=== PATIENT | male | born 1955 | race Caucasian/White ===

== ENCOUNTER 2017-04-05 13:17 | Emergency (ER) | payer OTHER ==
[~2017-04-05] VITALS: Ht 182.9 cm; Wt 109.1 kg
[2017-04-05 13:25] VITALS: BP 145/92; PULSE 73; RESP 15; O2SAT 97
[2017-04-05 14:06] LABS: APPEARANCE,URINE HAZY (CLEAR,HAZY); COLOR,URINE STRAW (YELLOW); OCCULT BLOOD,URINE SMALL (NEGATIVE); PH,URINE 5.5 (5.0-8.0); UROBILINOGEN,URINE NORMAL (NORMAL)
--- NOTE | 2017-04-05 15:34 | ED.REPORT ---
HPI-Abd Pain M 40 and Over Date of Service April 05, 2017 ED Provider: Lawrence Velazquez MD The patient is a 61 year old male with history of kidney stones and hypertension , who presents to the emergency department complaining of left flank pain that began about 4 hours ago. He has also noticed dark urine, abdominal pain, chills , and nausea. His last kidney stone was about 15 years ago. His current symptoms feel similar to when he previously had stone. He denies testicular pain , vomiting or fever. Nursing Notes Stated Complaint: KIDNEY PAIN Chief Complaint: Male Abdominal Pain Nursing Notes Reviewed: Yes Allergies: Coded Allergies: No Known Allergies (Unverified , 04/05/17) General Time Seen by MD: 15:33 Chief Complaint Flank pain left Hx Obtained From: Patient Sudden in Onset?: Yes Onset Occurred: 1 - 4 hours ago Symptom Duration: Since onset Progression since Onset: Constant Location: : Flank left Quality: Painful Radiation: : LLQ Severity: Current: Moderate Severity: Maximum: Severe Recent Healthcare: No recent doctor visit, No recent hospitalization Similar Sx Previous: Yes Past Medical History Past Medical History Hx of kidney stones Hypertension Family History Noncontributory Social History Other Social History: Good social support, Local resident Ambulatory Status Independent Review of Systems Review of Systems Note: +dark colored urine Constitutional: Reports: Chills, Denies: Fever GI: Reports: Abdominal pain, Nausea, Denies: Vomiting Male: Reports Flank pain, Denies Testicular pain Musculoskeletal: Reports: Back pain Complete sys rev & neg: except as marked. Physical Exam Initial Vital Signs Vital Signs (First) Date Time Temp Pulse Resp B/P Pulse Ox O2 Delivery O2 Flow Rate FiO2 04/05/17 13:25 36.1 73 15 145/92 97 Room Air Initial VS: Reviewed Head / Eyes: Atraumatic, Normocephalic, PERRL ENT: Mucous membranes moist, Conjunctiva normal, No scleral icterus Neck: Supple, Non-tender, Full range of motion Lymphatic: No lymphadenopathy Extremities: Vascular intact, Neuro intact, No swelling, No tenderness Skin: Warm, Dry, No cyanosis Neurologic: Alert, Oriented, Nonfocal Psychiatric: Mood/affect normal, Behavior normal, Normal thought content General/Constitutional: Awake, Alert Respiratory / Chest: Atraumatic, Breath sounds NL, Breath sounds = bilat, No respiratory distress, No rales, No rhonchi, No wheezing Cardiovascular: Heart rate NL, Regular rhythm, Heart sounds NL, No gallop, No murmurs, No rubs, Peripheral circulation NL Abdomen: Atraumatic, Soft, Non-tender, No guarding, No rebound, BS normoactive , No distention, No hernia, No palpable mass, No pulsatile mass Back: Inspection NL, Full range of motion, No midline vertebral tend, No CVA tenderness Interpretation & Diagnostics CT KUB IMPRESSION: 1. Obstructing left proximal/mid ureteral calcification (7mm) as above. 2. Multiple bilateral nonobstructing renal calculi. 3. Calcification is present at the right ureterovesicular junction without obstruction, possibly representing recently passed stone. 4. Mildly enlarged prostate gland. Recommend correlation PSA levels. Dictated by: Tamara Gabriel M.D. on 04/05/2017 at 16:12 Lab Results Interpretation Result Diagram: 04/05/17 1520 04/05/17 1520 Test 04/05/17 13:53 04/05/17 15:20 Urine Color Straw (YELLOW) Urine Appearance Hazy (CLEAR,HAZY) Urine pH 5.5 (5.0-8.0) Urine Specific [place] 1.020 (1.003-1.035) Urine Protein Negativemg/dL (NEG,TRACE) Urine Glucose (UA) Negativemg/dL (NEGATIVE) Urine Ketones Negativemg/dL (NEGATIVE) Urine Occult Blood Small (NEGATIVE) Urine Nitrite Negative (NEGATIVE) Urine Bilirubin Negative (NEGATIVE) Urine Urobilinogen Normalmg/dL (NORMAL) Urine Leukocyte Esterase Negative (NEGATIVE) Urine RBC 11-50/hpf (0-2) Urine WBC 0-5/hpf (0-5) Urine Epithelial Cells Occasional/hpf (NONE-MOD) Urine Crystals None seen (NONE SEEN) Urine Bacteria None/hpf (NONE-FEW) Urine Hyaline Casts None/lpf (NONE) Urine Granular Casts None seen (NONE SEEN) Urine Waxy Casts None seen (NONE SEEN) Urine Red Blood Cell Casts None seen (NONE SEEN) Urine White Blood Cell Casts None seen (NONE SEEN) Urine Mucus Present (None Seen) Urine Trichomonas None seen (NONE SEEN) Urine Yeast None (NONE SEEN) Urinalysis Comment None Urine Culture Reflexed Not indicated White Blood Count 9.5th/mm3 (3.8-10.1) Red Blood Count 4.81mil/mm3 (4.40-5.80) Hemoglobin 15.4g/dL (13.8-17.2) Hematocrit 43.3% (41.0-50.0) Mean Corpuscular Volume 90.0fL (81-100) Mean Corpuscular Hemoglobin 32.0pg (27.0-35.0) Mean Corpuscular Hemoglobin Concent 35.6% (32.0-37.0) Red Cell Distribution Width 12.6% (12.3-15.4) Platelet Count 166bil/L (150-400) Neutrophils (%) (Auto) 78.6% (40-74) Lymphocytes (%) (Auto) 12.8% (14-46) Monocytes (%) (Auto) 7.3% (4-12) Eosinophils (%) (Auto) 0.7% (0-5) Basophils (%) (Auto) 0.4% (0-3) Hold Purple Top Tube Received (Received) Hold Blue Top Tube Received (Received) Sodium Level 136mEq/L (134-144) Potassium Level 4.2mEq/L (3.5-5.2) Chloride Level 100mEq/L (97-108) Carbon Dioxide Level 21mmol/L (18-29) Blood Urea Nitrogen 16mg/dL (8-27) Creatinine 0.84mg/dL (0.76-1.27) Estimat Glomerular Filtration Rate 99mL/min (>59) Glucose Level 133mg/dL (60-99) Calcium Level 9.4mg/dL (8.5-10.1) Total Bilirubin 0.5mg/dL (0.0-1.2) Aspartate Amino Transf (AST/SGOT) 45U/L (0-50) Alanine Aminotransferase (ALT/SGPT) 63U/L (0-44) Alkaline Phosphatase 90U/L (25-160) Total Protein 7.0g/dL (6.4-8.4) Albumin 4.1g/dL (3.4-5.0) Hold Chilo Top Tube Received (Received) Hold Hardy Top Tube Received (Received) Re-Eval/Medical Decision Source of Hx: Old records Time of Eval: 16:33 Re-Evaluation/Progress Note: Rechecked the patient. Discussed CT results and plan for urology consult. Time of Eval: 17:12 Re-Evaluation/Progress Note: Rechecked the patient. Discussed plan for discharge with outpatient followup. All questions were addressed. Consultation : Referral / Consult Name: Tracy Ivy MD Consulted With: Urology Call Returned at: 16:56 Poultry Pathologist: Will see in office, Agrees with eval, Agrees with plan Counseled Regarding: Diagnosis, Lab results, Need for follow-up, When/why to return to ED Discharge & Departure Primary Impression: Ureteral obstruction, left Additional Impression: Ureterolithiasis Disposition: Home Vital Signs - All Vital Signs Date Time Temp Pulse Resp B/P Pulse Ox O2 Delivery O2 Flow Rate FiO2 04/05/17 13:25 36.1 73 15 145/92 97 Room Air )( All Prior VS Reviewed: Yes Condition: Stable Patient Instructions: Renal Colic (ED) Additional Instructions: Thank you for entrusting us with your care today. Your CT scan does show evidence of an obstructing stone on the left side. It is important that you followup with a urologist in the next few days. We have given you a referral to Dr. Ivy. Call the office tomorrow to schedule an appointment. Ibuprofen 100 mg every 8 hours. Use the hydrocodone/APAP 5/325 one or 2 pills every 4 hours as needed for pain and ondansetron as needed for nausea. Seek care sooner for increased pain, inability to urinate, fever, chills, vomiting, or any other new or concerning symptoms. Referrals: Leonardo Fuentes DO (PCP) Tracy Ivy MD Attestation Portions of this note were transcribed by Marquita Hearn. I, Dr. Velazquez personally performed the history, physical exam and medical decision-making; I reviewed and confirmed the accuracy of the information in the transcribed note. Signed by: Parish Aguilar, 04/05/2017 at 1720. copies to: Tracy Ivy MD; Leonardo Fuentes Kirk H MD April 05, 2017 15:34 Marquita Hearn April 05, 2017 15:37
[2017-04-05] MEDS ORDERED: 0.9% Sodium Chloride 1,000 ML IV ONE (15:44)
[2017-04-05] MEDS ORDERED: Ondansetron 2 mg/mL 2 mL Inj IVPUSH PRN (15:45)
[2017-04-05 15:58] LABS: BASOPHILS % (AUTO) 0.4 % (0-3); EOSINOPHILS % (AUTO) 0.7 % (0-5); MONOCYTES % (AUTO) 7.3 % (4-12); NEUTROPHILS % (AUTO) 78.6 % (40-74); Platelet Count 166 bil/L (150-400)
--- NOTE | 2017-04-05 16:21 | DRSVH ---
PROCEDURE: CT KUB ([id number]) INDICATIONS: left flank pain/hematuria TECHNIQUE: Noncontrast 5 mm thick sections acquired from the diaphragms to the symphysis. 5 mm thick coronal an d sagittal reformats were then performed. For radiation dose reduction, the following was used: aut omated exposure control, adjustment of mA and/or kV according to patient size. COMPARISON: None. FINDINGS: Image quality: Excellent. Lung bases: Lung bases are clear. Heart size is normal. Urinary system: Both kidneys are normal in size. Bilateral renal cysts are present, the largest on the left measuring 44 mm and the largest on the right measuring 36 mm. Multiple calcifications are pr esent within the left kidney, the largest measuring approximately 10 mm in the superior pole, Hounsfi eld units measuring 799. There are 3 additional calcifications in the posterior aspect of the superio r pole, the largest measuring approximately 2 mm. There are 2 punctate nonobstructing right renal krishna cifications. There is a 7 mm proximal/mid left ureteral calcification causing moderate hydronephrosis and hydroure ter. There is a calcification measuring 8 mm, Hounsfield units 851 at the right ureterovesicular junc tion. There is no obstruction. The prostate gland is mildly enlarged. Other solid organs: Liver is mildly enlarged with steatosis. Left hepatic lobe cyst is present measu ring 23 mm. The spleen is normal in size. Gallbladder demonstrates multiple luminal stones without w all thickening. Pancreas is normal in contours. No adrenal nodules. Peritoneum and bowel: Unenhanced bowel loops demonstrate normal wall thickness and caliber. No free fluid or air. Nodes and vessels: No retroperitoneal or mesenteric adenopathy by size criteria. Aorta and inferior vena cava are normal in caliber. Abdominal wall: No ventral hernias. Pelvis: No free pelvic fluid. No inguinal hernias or adenopathy. Bones: No suspicious bony lesions. No vertebral body compression fractures. IMPRESSION: 1. Obstructing left proximal/mid ureteral calcification as above. 2. Multiple bilateral nonobstructing renal calculi. 3. Calcification is present at the right ureterovesicular junction without obstruction, possibly repr esenting recently passed stone. 4. Mildly enlarged prostate gland. Recommend correlation PSA levels. Dictated by: Tamara Gabriel M.D. on 04/05/2017 at 16:12 Approved by: Tamara Gabriel M.D. on 04/05/2017 at 16:19
[2017-04-05] MEDS: HYDROmorphone 1 mg/mL Inj IVPUSH PRN ×2 (16:27→17:44)
[2017-04-05] MEDS ORDERED: ONDA4TAB9 PO (17:17)
[2017-04-05] MEDS ORDERED: OXYC1TAB24 PO (17:17)
[2017-04-05] MEDS ORDERED: IBUP800T28 PO (17:17)
[2017-04-05 18:13] VITALS: BP 130/82; PULSE 75; O2SAT 95
[2017-04-12] MEDS ORDERED: LISI10TA PO (09:53)
== END 2017-04-05 18:14 | disposition home or self-care (01) ==
LOC: SED 13:17
DX: N20.1 Calculus of ureter (principal); I10 Essential (primary) hypertension; Z87.442 Personal history of urinary calculi
CPT/HCPCS: 74176; 80053; 81000; 85025; 96361; 96374; 96375; 96376; 99285; J1170; J1885; J2405; J7030

== ENCOUNTER 2017-04-14 06:45 | Day surgery (SDC) | payer OTHER ==
[2017-04-14] VITALS (8 sets, daily range): BP systolic 102–120; BP diastolic 62–80; PULSE 58–75; RESP 13–17; O2SAT 94–99
[~2017-04-14] VITALS: Ht 180.3 cm; Wt 109.1 kg
--- NOTE | 2017-04-14 06:37 | PCM.HPANE ---
Patient Data Surgeon Admitting Provider: Attending Provider:Magy Solis MD Primary Care Physician:Leonardo Fuentes DO Other Provider:[employer] Anesthesia Reason for Visit Left Ureteral Stone Ht/WT & BMI Height (Feet): 5 Height (Inches): 11 Weight (Kilograms): 109.09 Body Mass Index 33.00 Allergies Coded Allergies: No Known Allergies (Unverified , 04/05/17) Past Anesthesia History Anesthesia History: Denies:: Anesthesia Reactions, Fam Anesthesia Reaction, Fam Malignant Hypertherm, Malignant Hyperthermia Diabetes History Hx Diabetes?: No MRSA MRSA: No Medications Active Scripts oxyCODONE-Acetaminophen 5-325 mg 1 Each Tablet1-2 Tab PO Q4H PRN For Pain #25 TABLET Prov:Lawrence Velazquez MD 04/05/17 Ibuprofen 800 Mg [id number] Mg PO TID PRN For Pain #15 TABLET Prov:Lawrence Velazquez MD 04/05/17 Reported Medications Lisinopril 10 Mg [id number] Mg PO DAILY 30 Days Ref 0 04/12/17 Discontinued Scripts Ondansetron ODT (Zofran ODT)4 Mg Tablet4 Mg PO Q4H PRN For Nausea #20 TABLET Prov:Lawrence Velazquez MD 04/05/17 History History of ENT Problems?: Yes HEENT History: Positive for:: Sinus Problem (seasonal allergies) Denture Type: None Teeth Condition: Within Normal Limits Hx of Heart Problems?: Yes Cardiovascular History: Positive for:: Hypertension Denies:: Congestive Heart Failure Hx of Respiratory Problem?: Yes Respiratory History: Positive for:: Use of C-PAP Machine Denies:: Tuberculosis Hx Neurologic Problems?: No Hx of GI Problems?: No Hx of Problems?: Yes Genitourinary History: Positive for:: Kidney Stones Male Hx: Denies:: Prostate Problems Scrotal Mass Testicular Surgery Skin History: Positive for:: History Skin Disorders? (dry skin) Denies:: Pressure Ulcers Hx Musculoskeletal Problems?: No Musculoskeletal History: Positive for:: Back Injury Musculoskeletal Trauma Hx of Psycho/Social Problems?: No Hx Surgeries?: Yes (kidney stone, shoulder, r arm) Hx Any Other Health Problems?: Yes Other History: Positive for:: Cancer Hx Diabetes: No Hx Alcohol Use: Yes (weekly)Hx Substance Use: No Stop/Bang S-Snoring: Do You Snore Loudly: No T-Tired: feel tired, fatigued: No O-Obsered: Observed not breath: No P-Blood Pressure: treated: No B- Body Mass Index > 35 kg/m2: No A- Age over 50: Yes N- Neck Large Circumference: No G- Gender Male: Yes SCARLET Total Score: 2 SCARLET Risk Assessment: High Risk, =/>3 Yes SCARLET Category 4 OutPt Procedure: Yes Risk Assessment Category Category 1A: Patient has history of documented sleep apnea, and HAS NOT received any narcotic, sedative or anesthesia administration during this stay. Category 1B: Patient has history of documented sleep apnea, and HAS received any narcotic , sedative or anesthesia administration during this stay Category 2: Patient has SUSPECTED Obstructive Sleep Apnea, and HAS received any narcotic , sedative or anesthesia administration during this stay. Category 3: Patient has SUSPECTED Obstructive Sleep Apnea and HAS NOT received narcotic, sedative or anesthesia administration during this stay. Category 4: Outpatient in Procedural Areas with known sleep apnea or who screen positive for High Risk via the STOP/BANG questionnaire. Exam Exam General Appearance: Alert, Oriented X3, Cooperative, No Acute Distress HEENT/AIRWAY: MP 2 Lungs: Clear to Auscultation, Normal Air Movement Heart: Exam Unremarkable, Regular Rate/Rhythm, No Murmurs/Rubs/Gallops Plan Impression Patient chart reviewed, patient interviewed and anesthestic plan with risks, benefits, and alternatives discussed, and informed consent obtained. NPO per Anesth. Guidelines: Yes ASA Physical Status: ASA2 Mod Systemic Disease Anesthetic Plan: GA Bene/Risks/Altern/Consents: Yes HP Complete Prior to Induction: Yes Aden Chatman MD April 14, 2017 06:37
[~2017-04-14 06:45] MED LIST: CeFAZolin Inj 2 GM in IV Premix 1 EACH IV SCH; IBUP800T28 PO; LISI10TA PO; Lactated Ringer's 1,000 ML IV SCH; ONDA4TAB9 PO; OXYC1TAB24 PO
[2017-04-14] MEDS ORDERED: Dexamethasone 4 mg/mL Inj ONE (06:46)
[2017-04-14] MEDS ORDERED: Glycopyrrolate 0.2 MG/ML 1mL Inj ONE (06:46)
[2017-04-14] MEDS ORDERED: Propofol 10,000 mCg/mL 20 mL Inj ONE (06:46)
[2017-04-14] MEDS ORDERED: fentaNYL-PF 50 mCg/mL 2 mL Inj ONE (06:46)
[2017-04-14] MEDS ORDERED: Ondansetron 2 mg/mL 2 mL Inj ONE (06:46)
[2017-04-14] MEDS ORDERED: Lactated Ringer's 1,000 ML IV ONE (07:11)
[2017-04-14] MEDS ORDERED: Lactated Ringer's 500 ML IV PRN (11:09)
[2017-04-14] MEDS ORDERED: Lactated Ringer's 1,000 ML IV SCH (11:09)
[2017-04-14] MEDS ORDERED: Dexamethasone 4 mg/mL Inj IVPUSH PRN (11:10)
[2017-04-14] MEDS ORDERED: Phenylephrine 10,000 mCg/mL Inj IVPUSH PRN (11:10)
[2017-04-14] MEDS ORDERED: EPHEDrine Sulfate 50 mg/mL Inj IVPUSH PRN (11:10)
[2017-04-14] MEDS ORDERED: HYDROmorphone 1 mg/mL Inj IVPUSH PRN (11:10)
[2017-04-14] MEDS ORDERED: Labetalol 5 mg/mL 4 mL Inj IV PRN (11:10)
[2017-04-14] MEDS ORDERED: Ondansetron 2 mg/mL 2 mL Inj IVPUSH PRN (11:10)
[2017-04-14] MEDS ORDERED: MetoCLOpramide 5 mg/mL 2 mL Inj IVPUSH PRN (11:10)
[2017-04-14] MEDS ORDERED: fentaNYL-PF 50 mCg/mL 2 mL Inj IVPUSH PRN (11:10)
[2017-04-14] MEDS ORDERED: Atropine 0.4 mg/mL Inj IVPUSH PRN (11:10)
--- NOTE | 2017-04-14 12:04 | PCM.ANEP1 ---
Post Anesthesia PACU Phase 1 Assessment Vital Signs Vital Signs Date Time Temp Pulse Resp B/P Pulse Ox O2 Delivery O2 Flow Rate FiO2 04/14/17 11:45 59 13 108/62 96 Room Air 04/14/17 11:40 58 16 118/66 98 Simple Mask 10 04/14/17 11:35 60 16 117/70 99 Simple Mask 10 04/14/17 11:30 36.4 69 17 116/67 98 Simple Mask 10 04/14/17 07:11 36 75 14 120/80 94 Room Air Anesthetic Administered: GA Level of Alertness: Awake, talking KUMAR's with Equal Strength: Yes Pain: No Nausea or Vomiting: No CV Function & Hydration Stable: No Airway Device: Oxygen Delivery: Simple Mask Lungs: Clear to Auscultation, Normal Air Movement PACU Phase 2 Assessment Complications: No Follow up Care: No Patient Instructions Provided: N/A Aden Chatman MD April 14, 2017 12:04
--- NOTE | 2017-04-14 13:42 | OP ---
[address] [address] OPERATIVE REPORT PATIENT: MIKAEL BERMUDEZ : 1955 MR#: [id number] ADMIT: 04/14/2017 JOB ID: [id number] DATE OF SURGERY: 04/14/2017 SURGEON: Magy Solis M.D. PREOPERATIVE DIAGNOSIS(ES): Left ureteral calculus. POSTOPERATIVE DIAGNOSIS(ES): Left ureteral calculus. PROCEDURE: Cystoscopy, ureteroscopy, laser lithotripsy, stone basketing and insertion of stent. ANESTHESIA: General anesthetic, Dr. Chatman. DESCRIPTION OF PROCEDURE: Under general anesthetic, the patient was placed in the lithotomy position. Genitalia prepped and draped in a sterile manner. A 22-[place] cystoscope was introduced through a normal urethra. A 0.035 Glidewire was advanced to the level of the left renal pelvis. A balloon dilation catheter was then used to dilate the distal ureter to 15-[place]. Semi rigid ureteroscope was then passed alongside the wire. Just below the level of the iliac vessels, a stone was visualized. Using a 400 micron fiber, the holmium laser, the stone was broken into multiple fragments which were then basketed free. After all stone fragments had been removed, a 6-[place] 24 cm stent was passed over the wire. When the wire was confirmed to be in good position fluoroscopically, the wire was withdrawn. The patient tolerated the procedure well, left the operating room in good condition.
[2017-04-22 09:12] LABS: Stone Color Brown (.)
== END 2017-04-14 23:59 | disposition home or self-care (01) ==
LOC: SAS 06:45
PROVIDERS: ATTEND Urology
DX: N20.1 Calculus of ureter (principal); I10 Essential (primary) hypertension; G47.33 Obstructive sleep apnea (adult) (pediatric); E66.3 Overweight; Z68.33 Body mass index [BMI] 33.0-33.9, adult; Z87.442 Personal history of urinary calculi; J30.2 Other seasonal allergic rhinitis
CPT/HCPCS: 52356; 76000; 82360; C2617; J0690; J1100; J2250; J2405; J3010; J7120